=== PATIENT | female | born 1990 | race Caucasian/White ===

== ENCOUNTER → 2019-06-29 | Emergency (ER) | payer SELFPAY ==
[~2019-06-29] VITALS: Ht 160 cm; Wt 72.6 kg
[2019-06-29 05:28] VITALS: BP 125/74
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
--- NOTE | 2019-06-29 05:33 | NUR ---
PATIENT BIB [facility]. PATIENT EXAMINED BY DR. GODFREY. PATIENT MEDICALLY CLEARED AND RELEASED IN CUSTODY IN STABLE CONDITION. ORIGINAL PRE-BOOK FORM GIVEN TO OFFICER MAGUE.
--- NOTE | 2019-06-29 05:38 | NUR ---
Patient discharged with v/s stable. Written and verbal after care instructions given and explained. Patient verbalized understanding. In custody of [facility]. All questions addressed prior to discharge.
[2019-06-29 05:39] VITALS: BP 125/74
== END ==
LOC: MED 05:26
DX: F10.10 Alcohol abuse, uncomplicated (principal); Z02.89 Encounter for other administrative examinations; V89.2XXA Person injured in unspecified motor-vehicle accident, traffic, initial encounter; Y93.89 Activity, other specified; Y92.89 Other specified places as the place of occurrence of the external cause; Y99.8 Other external cause status
CPT/HCPCS: 99283